=== PATIENT | female | born 1955 | race Caucasian/White ===

== ENCOUNTER 2022-09-05 14:03 | Outpatient (CLI) | payer MEDICARE | END 2022-09-05 14:04 | disposition home or self-care (01) | LOC: CSHMAMMO 14:03 | PROVIDERS: ATTEND Family Medicine | DX: Z12.31 Encounter for screening mammogram for malignant neoplasm of breast (principal); Z85.828 Personal history of other malignant neoplasm of skin | CPT/HCPCS: 77063; 77067 ==

== ENCOUNTER 2023-09-13 10:37 | Outpatient (CLI) | payer MEDICARE, OTHER | END 2023-09-13 10:38 | disposition home or self-care (01) | LOC: CSHMAMMO 10:37 | PROVIDERS: ATTEND Family Medicine | DX: Z12.31 Encounter for screening mammogram for malignant neoplasm of breast (principal) | CPT/HCPCS: 77063; 77067 ==

== ENCOUNTER 2023-10-11 10:36 | Outpatient (CLI) | payer MEDICARE, OTHER | END 2023-10-11 10:37 | disposition home or self-care (01) | LOC: CSHMAMMO 10:36 | PROVIDERS: ATTEND Family Medicine | DX: Z00.00 Encounter for general adult medical examination without abnormal findings (principal); M81.8 Other osteoporosis without current pathological fracture; M85.852 Other specified disorders of bone density and structure, left thigh | CPT/HCPCS: 77080 ==

== ENCOUNTER 2024-09-16 11:19 | Outpatient (CLI) | payer MEDICARE, OTHER | END 2024-09-16 11:20 | disposition home or self-care (01) | LOC: CSHMAMMO 11:19 | DX: Z12.31 Encounter for screening mammogram for malignant neoplasm of breast (principal) | CPT/HCPCS: 77063; 77067 ==